=== PATIENT | female | born 1995 | race Caucasian/White ===

== ENCOUNTER 2022-04-23 14:07 | Emergency (ER) | payer MEDICAID ==
[~2022-04-23] VITALS: Ht 170.2 cm; Wt 81.8 kg
[2022-04-23] MEDS ORDERED: ACET-2080 PO ×2 (15:15→15:52)
[2022-04-23] MEDS ORDERED: IBUP-1554 PO ×2 (15:15→15:52)
[2022-04-23] MEDS ORDERED: ACETAMINOPHEN/CODEINE 300-30 MG TABLET PO ONE (15:15)
[2022-04-23] MEDS ORDERED: KETOROLAC TROMETHAMINE 60 MG/2 ML VIAL IM ONE (15:15)
[2022-04-23 16:48] VITALS: BP 136/73
== END 2022-04-23 16:49 | disposition home or self-care (01) ==
LOC: EMS 14:07
DX: G44.209 Tension-type headache, unspecified, not intractable (principal)
CPT/HCPCS: 99283; 96372; J1885

== ENCOUNTER 2022-04-25 21:36 | Emergency (ER) | payer MEDICAID ==
[~2022-04-25] VITALS: Ht 170.2 cm; Wt 81.8 kg
[~2022-04-25 21:36] MED LIST: ACET-2080 PO; IBUP-1554 PO
[2022-04-25 21:37] VITALS: BP 149/73
== END 2022-04-26 00:11 | disposition left against medical advice (07) ==
LOC: EMS 22:01
DX: R51.9 Headache, unspecified (principal); Z53.21 Procedure and treatment not carried out due to patient leaving prior to being seen by health care provider

== ENCOUNTER 2022-04-29 13:28 | Emergency (ER) | payer MEDICAID ==
[~2022-04-29] VITALS: Ht 167.6 cm; Wt 90.0 kg
[2022-04-29 13:55] LABS: COVID AG,FIA SOURCE NASOPHARYNGEAL
[2022-04-29 13:58] LABS: BASOPHILS % (AUTO) 0.7 % (0.0-2.0); EOSINOPHILS % (AUTO) 0.2 % (1.0-6.0); HEMATOCRIT 39.5 % (36-46); HEMOGLOBIN 13.3 g/dL (12.0-16.0); LYMPHOCYTES # (AUTO) 1.9 K/uL (1.0-4.8); LYMPHOCYTES % (AUTO) 16.2 % (22.0-44.0); MEAN CORPUSCULAR HEMOGLOBIN 27.2 pg (26.0-34.0); MEAN CORPUSCULAR HGB CONC 33.6 G/dL (31.0-37.0); MEAN CORPUSCULAR VOLUME 81 fL (80-100); MONOCYTES # (AUTO) 0.4 K/uL (0.1-1.0); MONOCYTES % (AUTO) 3.6 % (2.0-9.0); NEUTROPHILS # (AUTO) 9.4 K/uL (1.8-7.7); NEUTROPHILS % (AUTO) 79.3 % (40.0-70.0); PLATELET COUNT (AUTO) 401 K/uL (150-450); RED BLOOD CELL COUNT(AUTO) 4.88 MIL/uL (4.00-5.20); RED CELL DISTRIBUTION WIDTH 13.9 % (11.5-14.5)
[2022-04-29 14:11] LABS: PROTHROMBIN TIME 10.8 SEC (9.4-11.6)
[2022-04-29 14:13] LABS: ABG BASE EXCESS 0.5 mmol/L (-2.0-3.0); ABG CARBOXYHEMOGLOBIN 0.3 % (0.0-3.0); ABG METHEMOGLOBIN 0.1 % (0.0-1.5); ABG OXYGEN CONTENT 17.3 mL/dL (15.0-23.0); ABG OXYGEN SATURATION 96.8 % (95.0-98.0); ABG OXYHEMOGLOBIN 96.4 % (94.0-100.0); ABG PCO2 38 mmHg (35-45); ABG PH 7.428 (7.350-7.450); ABG TOTAL HEMOGLOBIN 12.7 G/dL (12.0-18.0); PO2, ARTERIAL BG 95.1 mmHg (80.0-100.0); SOURCE, BLOOD GAS ARTERIAL
[2022-04-29 14:14] LABS: SITE, BLOOD GAS LFT RADIAL
[2022-04-29 14:15] LABS: ABG A-A DIFF O2 8.5 mmHg (10-20.0); O2 DEVICE,BLOOD GAS ROOM AIR (ROOM AIR)
[2022-04-29 14:17] LABS: ANION GAP 12 mmol/L (8-16); CALCIUM, TOTAL 9.2 mg/dL (8.8-10.5); CARBON DIOXIDE 24 mmol/L (22-29); CHLORIDE 104 mmol/L (98-107); GLUCOSE,RANDOM 110 mg/dL (70-110); POTASSIUM 3.2 mmol/L (3.5-5.1); SODIUM SERUM 140 mmol/L (136-145); UREA NITROGEN, BLOOD 14 mg/dL (7-18)
[2022-04-29 14:18] LABS: GLOMERULAR FILTR. RATE CALC > 60 mL/min (>60)
[2022-04-29 14:21] LABS: LACTIC ACID 1.4 mmol/L (0.4-2.0)
[2022-04-29 14:25] LABS: SALICYLATE 0.9 mg/dL (2.8-20.0)
[2022-04-29 14:30] LABS: ALANINE AMINOTRANSFERASE 30 U/L (12-78); ALBUMIN 3.8 g/dL (3.4-5.0); ALKALINE PHOSPHATASE 74 U/L (46-116); ASPARTATE AMINOTRANSFERASE 17 U/L (15-37); BILIRUBIN,TOTAL 0.3 mg/dL (0.1-1.0); CREATINE KINASE, TOTAL ONLY 177 U/L (26-192); HCG,QUANTITATIVE < 1 mIU/mL (0-6); TOTAL PROTEIN, SERUM 7.4 g/dL (6.4-8.2)
[2022-04-29 14:31] LABS: ACETAMINOPHEN < 2 mcg/mL (10-30); AMMONIA < 10 umol/L (11-32)
[2022-04-29] MEDS ORDERED: POTASSIUM CHLORIDE 20 MEQ ER TABLET PO ONE (14:45)
[2022-04-29 17:23] VITALS: BP 128/76
== END 2022-04-29 17:29 | disposition home or self-care (01) ==
LOC: EMS 13:29
DX: R06.02 Shortness of breath (principal); Z88.0 Allergy status to penicillin; Z79.899 Other long term (current) drug therapy; Z20.822 Contact with and (suspected) exposure to COVID-19
CPT/HCPCS: 99285; 70450; 71045; 87426; 80053; 82140; 82550; 82962; 83605; 84484; 84702; 85025; 85610; 85730; 87040; 36415; 82805; 93005; G0480; 51702; G0481

== ENCOUNTER 2022-06-29 21:36 | Emergency (ER) | payer MEDICAID ==
[~2022-06-29] VITALS: Ht 170.2 cm; Wt 90.9 kg
[2022-06-29] MEDS ORDERED: LOPE-232 PO (21:53)
[2022-06-29] MEDS ORDERED: SODIUM CHLORIDE 0.9% 1,000 ML IV ONE (22:30)
[2022-06-29] MEDS ORDERED: ONDANSETRON HCL 4 MG/2 ML VIAL IVP ONE (22:30)
[2022-06-29] MEDS ORDERED: CIPROFLOXACIN HCL 250 MG TABLET PO ONE (22:30)
[2022-06-29] MEDS ORDERED: LOPERAMIDE HCL 2 MG CAPSULE PO ONE (22:30)
[2022-06-29 22:58] LABS: BASOPHILS % (AUTO) 0.6 % (0.0-2.0); EOSINOPHILS % (AUTO) 0.9 % (1.0-6.0); HEMATOCRIT 37.5 % (36-46); HEMOGLOBIN 12.6 g/dL (12.0-16.0); LYMPHOCYTES % (AUTO) 15.2 % (22.0-44.0); MEAN CORPUSCULAR HEMOGLOBIN 27.9 pg (26.0-34.0); MEAN CORPUSCULAR HGB CONC 33.5 G/dL (31.0-37.0); MEAN CORPUSCULAR VOLUME 83 fL (80-100); MONOCYTES # (AUTO) 0.5 K/uL (0.1-1.0); MONOCYTES % (AUTO) 8.2 % (2.0-9.0); NEUTROPHILS # (AUTO) 4.8 K/uL (1.8-7.7); NEUTROPHILS % (AUTO) 75.1 % (40.0-70.0); PLATELET COUNT (AUTO) 342 K/uL (150-450); RED BLOOD CELL COUNT(AUTO) 4.51 MIL/uL (4.00-5.20)
[2022-06-29 23:05] LABS: ANION GAP 5 mmol/L (8-16); CALCIUM, TOTAL 8.8 mg/dL (8.8-10.5); CARBON DIOXIDE 29 mmol/L (22-29); CHLORIDE 102 mmol/L (98-107); GLUCOSE,RANDOM 83 mg/dL (70-110); POTASSIUM 3.4 mmol/L (3.5-5.1); SODIUM SERUM 136 mmol/L (136-145); UREA NITROGEN, BLOOD 16 mg/dL (7-18)
[2022-06-29 23:10] LABS: GLOMERULAR FILTR. RATE CALC > 60 mL/min (>60)
[2022-06-29 23:11] LABS: ALANINE AMINOTRANSFERASE 31 U/L (12-78); ALBUMIN 3.4 g/dL (3.4-5.0); ALKALINE PHOSPHATASE 92 U/L (46-116); ASPARTATE AMINOTRANSFERASE 17 U/L (15-37); BILIRUBIN,TOTAL 0.3 mg/dL (0.1-1.0); LIPASE 106 U/L (73-393); TOTAL PROTEIN, SERUM 7.6 g/dL (6.4-8.2)
[2022-06-29 23:14] LABS: LACTIC ACID 0.8 mmol/L (0.4-2.0)
[2022-06-30 05:44] VITALS: BP 102/52
== END 2022-06-30 06:03 | disposition home or self-care (01) ==
LOC: EMS 21:37
DX: R10.13 Epigastric pain (principal); R19.7 Diarrhea, unspecified; R11.2 Nausea with vomiting, unspecified; Z88.0 Allergy status to penicillin; Z79.899 Other long term (current) drug therapy
CPT/HCPCS: 74176; 80053; 83605; 83690; 85025; 96361; 96374; 99285; J2405; J7030; 36415-L1; 36415-TC